=== PATIENT | female | born 1945 | race Caucasian/White ===

== ENCOUNTER 2017-10-26 09:27 | Inpatient (IN) | payer MEDICARE, BC ==
[~2017-10-26] VITALS: Ht 167.6 cm; Wt 61.7 kg
[2017-10-26 10:14] LABS: BASOPHILS % (AUTO) 0.1 % (0-1); EOSINOPHILS % (AUTO) 0.1 % (0-6); HEMATOCRIT 41.1 % (35.0-45.0); HEMOGLOBIN 13.8 g/dl (12.0-16.0); LYMPHOCYTES # (AUTO) 2.6 X10'3 (1.1-4.8); LYMPHOCYTES % (AUTO) 22.5 % (21-51); MEAN CORPUSCULAR HEMOGLOBIN 28.2 PG (27.0-31.0); MEAN CORPUSCULAR HGB CONC 33.5 % (33.0-36.5); MEAN CORPUSCULAR VOLUME 84.2 FL (78-98); MEAN PLATELET VOLUME 7.8 FL (7.4-10.4); MONOCYTES # (AUTO) 0.5 X10'3 (0-0.9); MONOCYTES % (AUTO) 4.4 % (2-12); NEUTROPHILS # (AUTO) 8.5 X10'3 (1.8-7.7); NEUTROPHILS % (AUTO) 72.9 % (42-75); PLATELET COUNT 390 X10'3 (140-440); RED BLOOD COUNT 4.89 X10'6 (4.20-5.60); WHITE BLOOD COUNT 11.7 X10'3 (4.5-11.0)
[2017-10-26 10:26] LABS: PARTIAL THROMBOPLASTIN TIME 27 SECONDS (22-32); PROTHROMBIN TIME 10.3 SECONDS (9.0-12.0)
[2017-10-26 10:29] LABS: ALANINE AMINOTRANSFERASE 31 U/L (12-78); ALBUMIN 4.1 G/DL (3.4-5.0); ALKALINE PHOSPHATASE 226 IU/L (46-116); ANION GAP 15 (8-16); ASPARTATE AMINO TRANSFERASE 34 U/L (10-37); BILIRUBIN,TOTAL 0.7 MG/DL (0.1-1.0); BLOOD UREA NITROGEN 15 MG/DL (7-18); BUN/CREATININE RATIO 18.8 (6.6-38.0); CALCIUM 9.2 MG/DL (8.5-10.1); CHLORIDE 98 MMOL/L (99-107); GLUCOSE 130 MG/DL (70-104); POTASSIUM 3.9 MMOL/L (3.5-5.1); SODIUM 133 MMOL/L (135-145); TOTAL PROTEIN 8.3 G/DL (6.4-8.2); eGFR 71 ML/MIN
[2017-10-26] MEDS ORDERED: furosemide 10 MG/1 ML 10ml inj IV ONE (10:35)
[2017-10-26] MEDS ORDERED: iohexol 350MG/ML 100ml bottle IV ONE (11:09)
[2017-10-26] MEDS ORDERED: potassium Cl 20 mEq SR tablet PO PRN (11:15)
[2017-10-26] MEDS ORDERED: HYDROcodone/acetaminophen 5mg/325mg tablet PO PRN (11:15)
[2017-10-26] MEDS ORDERED: enoxaparin 40mg/0.4ml syringe SUBCUT SCH (11:15)
[2017-10-26] MEDS ORDERED: magnesium 2GM in 50ml NS 50 ML IV PRN (11:15)
[2017-10-26] MEDS ORDERED: magnesium 4gm in 100ml NS 100 ML IV PRN (11:15)
[2017-10-26] MEDS: K and/or MAG REPLACEMENT MC SCH (11:15)
[2017-10-26] MEDS ORDERED: mag hydrox/Alum hydrox/simeth 30ml oral suspension PO PRN (11:15)
[2017-10-26] MEDS ORDERED: ondansetron/PF 4mg/2ml inj IV PRN (11:15)
[2017-10-26] MEDS ORDERED: potassium Cl 40MEQ/NS 500ml 500 ML IV PRN ×2 (11:15)
[2017-10-26] MEDS ORDERED: HYDROcodone/acetaminophen 10/325mg tab PO PRN (11:15)
[2017-10-26] MEDS ORDERED: magnesium hydroxide 30ml (MOM) UD suspension PO PRN (11:15)
[2017-10-26] MEDS ORDERED: magnesium Cl slow-release 64mg tablet PO PRN (11:15)
[2017-10-26] MEDS ORDERED: acetaminophen 325mg tablet PO PRN ×2 (11:15)
[2017-10-26] MEDS ORDERED: morphine 4 MG/ML inj SYRINge IV PRN ×2 (11:15)
[2017-10-26 13:58] LABS: HEMOGLOBIN A1C 6.2 % (4.5-6.2)
[2017-10-26] MEDS ORDERED: aminophylline 250mg/10ml inj. IV PRN (14:55)
[2017-10-26] MEDS ORDERED: regadenoson 0.4mg/5ml syringe IV ONE (14:55)
[2017-10-26] MEDS ORDERED: nitroGLYCERIN 0.4mg SUBLingual tab SL PRN (14:55)
[2017-10-26] MEDS ORDERED: metoprolol tartrate 1mg/ml inj IV PRN (14:55)
[2017-10-26 19:00] VITALS: BP 169/94
[2017-10-26] MEDS: furosemide 40mg/4ml inj IV SCH (20:52)
[2017-10-26] MEDS ORDERED: temazepam 15mg capsule PO PRN (21:00)
[2017-10-26 23:00] VITALS: BP 148/95
[2017-10-27] VITALS (12 sets, daily range): BP systolic 145–171; BP diastolic 85–102
[2017-10-27 05:30] LABS: HEMOGLOBIN 12.9 g/dl (12.0-16.0); MEAN CORPUSCULAR HEMOGLOBIN 28.3 PG (27.0-31.0); MEAN CORPUSCULAR VOLUME 83.1 FL (78-98); MEAN PLATELET VOLUME 8.1 FL (7.4-10.4); PLATELET COUNT 328 X10'3 (140-440); RED BLOOD COUNT 4.57 X10'6 (4.20-5.60); RED CELL DISTRIBUTION WIDTH 14.8 % (11.5-14.5); WHITE BLOOD COUNT 11.1 X10'3 (4.5-11.0)
[2017-10-27 06:27] LABS: ALBUMIN 3.5 G/DL (3.4-5.0); ANION GAP 16 (8-16); BLOOD UREA NITROGEN 13 MG/DL (7-18); BUN/CREATININE RATIO 18.3 (6.6-38.0); CALCIUM 8.8 MG/DL (8.5-10.1); CHLORIDE 98 MMOL/L (99-107); CHOL/HDL RATIO 3.7 (0.00-4.99); CHOLESTEROL 215 MG/DL (0-200); CREATININE 0.71 MG/DL (0.40-0.90); GLUCOSE 109 MG/DL (70-104); HDL CHOLESTEROL 58 MG/DL (35-60); LDL CHOLESTEROL 133 MG/DL (50-100); MAGNESIUM 1.9 MG/DL (1.5-2.4); PHOSPHORUS 2.8 MG/DL (2.3-4.5); SODIUM 137 MMOL/L (135-145); TRIGLYCERIDES 106 MG/DL (20-135); eGFR 81 ML/MIN
[2017-10-27 06:33] LABS: POTASSIUM 2.7 MMOL/L (3.5-5.1)
[2017-10-27] MEDS: K and/or MAG REPLACEMENT MC SCH (07:55)
[2017-10-27] MEDS: furosemide 40mg/4ml inj IV SCH (07:55)
[2017-10-27] MEDS: potassium Cl 20 mEq SR tablet PO PRN ×3 (07:56→18:22)
[2017-10-27] MEDS ORDERED: enoxaparin 40mg/0.4ml syringe SUBCUT SCH (08:00)
[2017-10-27] MEDS ORDERED: regadenoson 0.4mg/5ml syringe IV ONE ×2 (08:35→08:50)
[2017-10-27] MEDS ORDERED: aminophylline inj. 0 ML IV ONE (08:35)
[2017-10-27] MEDS ORDERED: ASPI81TA52 PO (11:00)
[2017-10-27] MEDS ORDERED: ZOLP10TA PO (11:00)
[2017-10-27] MEDS ORDERED: ALPR1TAB2 PO (11:01)
[2017-10-27] MEDS ORDERED: MULT-955 PO (11:02)
[2017-10-27] MEDS ORDERED: CARV3.122 PO (17:11)
[2017-10-27] MEDS ORDERED: LISI-604 PO (17:11)
[2017-10-27] MEDS ORDERED: ATOR40TA PO (17:11)
[2017-10-27] MEDS ORDERED: FURO-150 PO (17:11)
== END 2017-10-27 21:34 | disposition home or self-care (01) | DRG 292 ==
LOC: ER 09:28 → ED HOLD 11:15 → EDBEDREQ 16:43 → PCU 3S 17:50 → CMPBEDREQ 10-27 19:50
PROVIDERS: ADMIT Family Medicine; ATTEND Family Medicine
PROC: B2261ZZ Computerized Tomography (CT Scan) of Right and Left Heart using Low Osmolar Contrast (ICD-10-PCS; principal; 2017-10-26)
PROC: C22YYZZ Tomographic (Tomo) Nuclear Medicine Imaging of Heart using Other Radionuclide (ICD-10-PCS; 2017-10-27)
DX: I11.0 Hypertensive heart disease with heart failure (principal); I48.92 Unspecified atrial flutter; I27.21 Secondary pulmonary arterial hypertension; E87.1 Hypo-osmolality and hyponatremia; I48.91 Unspecified atrial fibrillation; I50.23 Acute on chronic systolic (congestive) heart failure; J43.9 Emphysema, unspecified; R09.02 Hypoxemia; R73.9 Hyperglycemia, unspecified; E87.6 Hypokalemia; E78.5 Hyperlipidemia, unspecified; I25.10 Atherosclerotic heart disease of native coronary artery without angina pectoris; F17.200 Nicotine dependence, unspecified, uncomplicated; I25.2 Old myocardial infarction; Z90.710 Acquired absence of both cervix and uterus; Z90.49 Acquired absence of other specified parts of digestive tract; Z72.89 Other problems related to lifestyle
CPT/HCPCS: 36415; 71045; 71275; 78452; 80048; 80053; 80061; 83036; 83735; 83880; 84100; 84132; 84443; 84484; 85025; 85027; 85610; 85730; 87070; 93005; 93017; 93306; 97116; 97161; A9500; J0280; J1650; J1940; J7030; Q9967